=== PATIENT | male | born 2000 | race Caucasian/White ===

== ENCOUNTER 2025-05-20 02:48 | Emergency (ER) | payer SELFPAY ==
[~2025-05-20] VITALS: Ht 188 cm; Wt 108.9 kg
[2025-05-20] MEDS ORDERED: ASPIRIN 81 MG TAB.CHEW ONE (03:00)
[2025-05-20] MEDS: ASPIRIN 81 MG TAB.CHEW PO ONE (03:02)
[2025-05-20 03:25] LABS: PLATELET COUNT (AUTO) 340 K/uL (152-348); RED BLOOD CELL COUNT(AUTO) 6.32 MIL/uL (4.06-5.63); RED CELL DISTRIBUTION WIDTH 14.6 % (12.1-16.2); WHITE BLOOD COUNT (AUTO) 8.6 K/uL (3.6-10.2)
[2025-05-20 03:31] LABS: CREATININE 0.9 mg/dL (0.6-1.3); SODIUM SERUM 138 mmol/L (136-145); UREA NITROGEN, BLOOD 9 mg/dL (7-18)
[2025-05-20 03:36] LABS: ASPARTATE AMINOTRANSFERASE 17 U/L (15-37); TOTAL PROTEIN, SERUM 7.9 g/dL (6.4-8.2)
[2025-05-20 04:11] VITALS: BP 141/91
[2025-05-20 06:07] VITALS: BP 139/88; O2SAT 98
== END 2025-05-20 06:02 | disposition home or self-care (01) ==
LOC: ER 02:59
DX: R07.89 Other chest pain (principal); F17.210 Nicotine dependence, cigarettes, uncomplicated; R06.02 Shortness of breath
CPT/HCPCS: 36415; 71045; 84484; 85025; A4606; A4663